=== PATIENT | female | born 1975 | race Caucasian/White ===

== ENCOUNTER 2025-05-07 02:18 | Emergency (ER) | payer MEDICAID ==
[~2025-05-07] VITALS: Ht 162.6 cm; Wt 70.0 kg
[2025-05-07 02:21] VITALS: TEMP 37.2; O2SAT 98
[2025-05-07 04:59] VITALS: TEMP 98.9
[2025-05-07] MEDS: ACETAMINOPHEN 325MG TABLET PO ONE (04:59)
[2025-05-07] MEDS ORDERED: CYCL10TA21 MT (05:46)
[2025-05-07] MEDS ORDERED: IBUP-1455 MT (05:46)
[2025-05-07] MEDS ORDERED: LIDO-53 TP (05:46)
[2025-05-07 06:00] VITALS: BP 152/90; PULSE 86; RESP 18
[2025-05-07] MEDS: KETOROLAC 15MG/ML VIAL IM ONE (06:00)
== END 2025-05-07 07:01 | disposition home or self-care (01) ==
LOC: ER 02:18
DX: S60.221A Contusion of right hand, initial encounter (principal); I10 Essential (primary) hypertension; E11.9 Type 2 diabetes mellitus without complications; M54.16 Radiculopathy, lumbar region; R51.9 Headache, unspecified; Y04.0XXA Assault by unarmed brawl or fight, initial encounter; Y93.01 Activity, walking, marching and hiking; Y92.89 Other specified places as the place of occurrence of the external cause; Y99.8 Other external cause status
CPT/HCPCS: 81025; 73130; 70450; 70486; 96372; 99285; J1885; Z7610